=== PATIENT | male | born 1960 | race Caucasian/White ===

== ENCOUNTER 2021-04-17 07:51 | Outpatient (CLI) | payer BC ==
--- NOTE | 2021-04-17 12:26 | XRAY Report ---
PROCEDURE: Shoulder 3 View BILAT INDICATIONS: BILAT SHOULDER PAIN TECHNIQUE: 3 views of each shoulder were acquired. COMPARISON: None. FINDINGS: Right: No acute fractures or dislocations. No suspicious bony lesions. There multiple osseous dens ities around the shoulder, one adjacent to the superior glenoid, anterior to the humeral head, one henry perior to the acromioclavicular joint. There is mild acromioclavicular and moderate acromioclavicular joint degeneration. Visualized ribs appear intact. No suspicious soft tissue calcifications. Left: No fractures or dislocations. No suspicious bony lesions. Mild acromioclavicular and glenohu meral joint degeneration. No suspicious soft tissue calcifications. IMPRESSION: 1. There are multiple consistencies on right shoulder. The density adjacent to the superior glenoid A P related prior trauma. Differential diagnoses include intraarticular bodies and calcific tendinitis. If clinically indicated, MRI may be helpful 2. Mild degenerative joint disease bilaterally, right greater than left. Reviewed by: Mary Corado MD on 04/17/2021 12:25 PM PST Approved by: Mary Corado MD on 04/17/2021 12:25 PM PST Station ID: [id number]
== END 2021-04-17 07:52 | disposition home or self-care (01) ==
LOC: DI.WOS 07:51
PROVIDERS: ATTEND Physician Assistant
DX: M19.012 Primary osteoarthritis, left shoulder (principal); M19.011 Primary osteoarthritis, right shoulder; R93.6 Abnormal findings on diagnostic imaging of limbs

== ENCOUNTER 2022-03-29 08:00 | Outpatient (CLI) | payer BC ==
[2022-03-29 16:03] LABS: BASOPHILS % (AUTO) 0.5 %; EOSINOPHILS # (AUTO) 0.2 10^3/uL (0.0-0.7); EOSINOPHILS % (AUTO) 3.2 %; HCT - HEMATOCRIT 49.6 % (42.0-52.0); HGB - HEMOGLOBIN 16.6 g/dL (14.0-18.0); LYMPHOCYTES # (AUTO) 1.7 10^3/uL (1.5-3.5); MEAN CORPUSCULAR HEMOGLOBIN 29.6 pg (27.0-31.0); MEAN CORPUSCULAR HGB CONC 33.5 g/dL (32.0-36.0); MEAN CORPUSCULAR VOLUME 88.6 fL (80.0-94.0); MONOCYTES # (AUTO) 0.6 10^3/uL (0.0-1.0); MONOCYTES % (AUTO) 10.2 %; NEUTROPHILS # (AUTO) 3.3 10^3/uL (1.5-6.6); NEUTROPHILS % (AUTO) 56.6 %; PLT - PLATELET COUNT 197 10^3/uL (130-450); RED CELL DISTRIBUTION WIDTH 12.2 % (12.0-15.0); WHITE BLOOD COUNT 5.9 x10^3/uL (4.8-10.8)
[2022-03-29 16:28] LABS: PSA TOTAL 2.5 ng/mL (0.000-2.000)
[2022-03-29 16:31] LABS: ALBUMIN/GLOBULIN RATIO 1.5 (1.0-2.2); ALKALINE PHOSPHATASE 51 IU/L (42-121); ALT ALANINE AMINOTRANSFERASE 40 IU/L (10-60); AST ASPARTATE AMINOTRANSFERASE 26 IU/L (10-42); BILIRUBIN,TOTAL 1.1 mg/dL (0.2-1.0); BUN - BLOOD UREA NITROGEN 15 mg/dL (6-20); CALCIUM 8.9 mg/dL (8.5-10.3); CARBON DIOXIDE - CO2 27 mmol/L (21-32); CHLORIDE 100 mmol/L (101-111); CHOL/HDL RATIO 5.5 (<5.0); CHOLESTEROL 210 mg/dL; CREATININE 0.8 mg/dL (0.6-1.2); GFR - MDRD 97 (>89); GLUCOSE 99 mg/dL (70-100); HDL CHOLESTEROL 38 mg/dL; LDL CHOLESTEROL,CALCULATED 157 mg/dL; LDL/HDL RATIO 4.1 (<3.6); POTASSIUM 3.8 mmol/L (3.5-5.0); SODIUM 136 mmol/L (135-145); TOTAL PROTEIN 6.7 g/dL (6.7-8.2); TRIGLYCERIDES 77 mg/dL; VLDL CHOLESTEROL 15 mg/dL
[2022-03-29 17:22] LABS: PSA FREE 0.463 ng/mL (0.16-2.81)
[2022-03-30 08:38] LABS: ESTIMATED AVERAGE GLUCOSE 111 mg/dL (70-100); HEMOGLOBIN A1c% 5.5 % (4.27-6.07)
== END 2022-03-29 23:59 | disposition home or self-care (01) ==
LOC: LAB.R 08:00
PROVIDERS: ATTEND Internal Medicine
DX: Z00.00 Encounter for general adult medical examination without abnormal findings (principal); M25.50 Pain in unspecified joint; R73.01 Impaired fasting glucose; Z79.899 Other long term (current) drug therapy; N40.0 Benign prostatic hyperplasia without lower urinary tract symptoms; J30.2 Other seasonal allergic rhinitis; M25.519 Pain in unspecified shoulder
CPT/HCPCS: 80053; 80061; 83036; 83721; 84153; 84154; 84443; 85025

== ENCOUNTER 2022-07-23 12:40 | Outpatient (CLI) | payer BC ==
[2022-07-23 12:49] LABS: BASOPHILS % (AUTO) 0.4 %; EOSINOPHILS # (AUTO) 0.1 10^3/uL (0.0-0.7); EOSINOPHILS % (AUTO) 1.3 %; HCT - HEMATOCRIT 49.2 % (42.0-52.0); HGB - HEMOGLOBIN 16.4 g/dL (14.0-18.0); LYMPHOCYTES # (AUTO) 1.6 10^3/uL (1.5-3.5); LYMPHOCYTES % (AUTO) 20.3 %; MEAN CORPUSCULAR HEMOGLOBIN 29.8 pg (27.0-31.0); MEAN CORPUSCULAR HGB CONC 33.3 g/dL (32.0-36.0); MEAN CORPUSCULAR VOLUME 89.5 fL (80.0-94.0); MEAN PLATELET VOLUME 11.4 fL (7.4-11.4); MONOCYTES # (AUTO) 0.7 10^3/uL (0.0-1.0); MONOCYTES % (AUTO) 8.7 %; NEUTROPHILS # (AUTO) 5.4 10^3/uL (1.5-6.6); NEUTROPHILS % (AUTO) 68.9 %; PLT - PLATELET COUNT 211 10^3/uL (130-450); RED CELL DISTRIBUTION WIDTH 12.7 % (12.0-15.0); WHITE BLOOD COUNT 7.8 x10^3/uL (4.8-10.8)
[2022-07-23 12:52] LABS: BILIRUBIN,URINE NEGATIVE (NEGATIVE); GLUCOSE, URINE (UA) NEGATIVE (NEGATIVE); KETONES,URINE (UA) NEGATIVE (NEGATIVE); LEUKOCYTE ESTERASE, URINE NEGATIVE (NEGATIVE); NITRITE,URINE NEGATIVE (NEGATIVE); OCCULT BLOOD,URINE NEGATIVE (NEGATIVE); PROTEIN,URINE NEGATIVE (NEGATIVE); UROBILINOGEN,URINE 0.2 (NORMAL) E.U./dL (NORMAL)
[2022-07-23 12:59] LABS: CALCIUM 9.1 mg/dL (8.5-10.3); CREATININE 0.8 mg/dL (0.6-1.2); POTASSIUM 4.1 mmol/L (3.5-5.0)
[2022-07-23 13:08] LABS: WBC,URINE 0-3 /HPF (0-3)
[2022-07-23 13:09] LABS: BACTERIA,URINE Rare /HPF (None Seen); RBC,URINE 0-5 /HPF (0-5); SQUAMOUS EPITHELIAL CELL,UR RARE Squamous (<= Few)
[2022-07-23 13:37] LABS: CLARITY,URINE CLEAR (CLEAR)
== END 2022-07-23 12:41 | disposition home or self-care (01) ==
LOC: LAB 12:40
PROVIDERS: ATTEND Orthopaedic Surgery
DX: Z01.818 Encounter for other preprocedural examination (principal); N39.0 Urinary tract infection, site not specified
CPT/HCPCS: 36415; 80048; 81001; 85025; 87086; 93005

== ENCOUNTER 2022-08-09 16:03 | Outpatient (CLI) | payer BC ==
--- NOTE | 2022-08-13 17:18 | CT Report ---
PROCEDURE: UPPER EXTREMITY WO - RT INDICATIONS: RIGHT SHOULDER ARTHROPATHIES TECHNIQUE: Noncontrast 2 mm axial sections were acquired through the elbow joint, with coronal and sagittal refo rmats. For radiation dose reduction, the following was used: automated exposure control, adjustment of mA and/or kV according to patient size. COMPARISON: Shoulder radiograph dated 04/17/2021. FINDINGS: Image quality: Excellent. Bones: Moderate acromioclavicular joint osteoarthritic changes are seen with joint space narrowing, subchondral sclerosis and downward osteophyte formation depressing on musculotendinous junction of henry praspinatus. Moderate to severe lateral humeral joint osteoarthritis is seen with significant joint s pace narrowing, subchondral sclerosis and inferior marginal osteophyte formation. No acute fracture o r dislocation is seen. No suspicious bony lesions. Visualized right upper to mid ribs are intact. Soft tissues: There is superior migration of humeral head in relation to glenoid concerning for full -thickness rupture of distal supraspinatus. Mild supraspinatus muscle atrophy is seen on sagittal vignesh ges. No abnormal soft tissue calcifications. No significant joint effusion or calcified intra-articul ar loose bodies IMPRESSION: 1. Moderate to severe glenohumeral joint osteoarthritis and moderate acromioclavicular joint osteoart hritis. No fracture or dislocation. No suspicious bony lesions. 2. Superior migration of humeral head in relation to glenoid with markedly decreased subacromial spac e concerning for high-grade partial to full-thickness rupture of distal supraspinatus. Mild supraspin atus muscle atrophy. 3. No abnormal calcifications. No significant joint effusion or calcified intra-articular loose jovani s. Reviewed by: Seb Brown MD on 08/13/2022 5:17 PM PDT Approved by: Seb Brown MD on 08/13/2022 5:17 PM PDT Station ID: [id number]
== END 2022-08-09 16:04 | disposition home or self-care (01) ==
LOC: DI 16:03
PROVIDERS: ATTEND Orthopaedic Surgery
DX: M19.011 Primary osteoarthritis, right shoulder (principal); M62.511 Muscle wasting and atrophy, not elsewhere classified, right shoulder

== ENCOUNTER 2023-05-23 16:21 | Outpatient (CLI) | payer MEDICARE ==
--- NOTE | 2023-05-23 16:58 | XRAY Report ---
PROCEDURE: Foot 3+V LT (Weight Bearing) INDICATIONS: LT FOOT PAIN TECHNIQUE: 3 views of the foot were acquired. COMPARISON: None. FINDINGS: Bones: No fractures or dislocations. Mild degenerative changes of the interphalangeal joints and fi rst MTP joint. No suspicious bony lesions. Soft tissues: No tibiotalar joint effusion. Achilles tendon appears normal. IMPRESSION: No acute bony abnormality. Mild degenerative changes. If pain persists with conservative management, consider repeat x-ray in 10-14 days or cross-sectional imaging. Reviewed by: Faizan Fregoso MD on 05/23/2023 4:57 PM PST Approved by: Faizan Fregoso MD on 05/23/2023 4:57 PM [facility] Station ID: [id number]
== END 2023-05-23 16:22 | disposition home or self-care (01) ==
LOC: DI 16:21
PROVIDERS: ATTEND Podiatrist
DX: M19.072 Primary osteoarthritis, left ankle and foot (principal)

== ENCOUNTER 2023-06-11 08:24 | Outpatient (CLI) | payer MEDICARE, OTHER ==
--- NOTE | 2023-06-11 09:09 | Sleep Patient Instructions ---
Sleep Center Visit Summary - Patient Visit Information Reason for Visit: Initial consult for evaluation of sleep disordered breathing and other sleep issues. - Patient Instructions Instructions Attached: Sleep Study Additional Instructions: You will be completing a sleep study, either an in-lab polysomnography (PSG) or home sleep study (HST). You will follow-up in the sleep care office after the sleep study is completed to hear the results and talk about therapy, if needed. You will be called by our office staff to schedule this appointment, but you may contact us with any questions. - Clinic Information Contact: [facility] [address] [place] [address] [email or web address] T: [phone]
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
[2023-06-11 09:21] VITALS: BP 132/84; O2SAT 98
== END 2023-06-11 08:25 | disposition home or self-care (01) ==
LOC: SC 08:24
PROVIDERS: ATTEND Nurse Practitioner Family
DX: R06.83 Snoring (principal); G47.8 Other sleep disorders; R41.89 Other symptoms and signs involving cognitive functions and awareness; G47.10 Hypersomnia, unspecified
CPT/HCPCS: 99203; G0463; 99212

== ENCOUNTER 2023-06-26 20:36 | Outpatient (CLI) | payer MEDICARE, OTHER | END 2023-06-26 20:37 | disposition home or self-care (01) | LOC: SC 20:36 | PROVIDERS: ATTEND Nurse Practitioner Family | DX: G47.52 REM sleep behavior disorder (principal) | CPT/HCPCS: 95810 ==

== ENCOUNTER 2023-07-25 09:44 | Outpatient (CLI) | payer MEDICARE, OTHER ==
--- NOTE | 2023-07-25 10:07 | Sleep Patient Instructions ---
Sleep Center Visit Summary - Patient Visit Information Reason for Visit: Sleep study follow-up - Patient Instructions Additional Instructions: Your sleep study today was negative for significant sleep disordered breathing. However, you did have elevated respiratory episodes when sleeping on your back. You should avoid sleeping on your back to control these respiratory episodes. You were also found to have REM behavior disorder with abnormal arm and leg movements during REM sleep. You should seek neurology consult for further evaluation of possible neurological issues. You may also take 10 mg melatonin nightly to help mitigate movements. You should also make the bedroom a safe place for you and your bed partner. You were found to have episodes of snoring. There are different ways to control snoring including weight loss, oral devices made by a dentist or surgical options through ENT specialist. You should not use oral devices that do not fit properly because they can affect your bite. You should also check insurance coverage of oral devices for snoring because they may not be cover well. You may obtain a referral to an ENT specialist through your primary provider. Follow-up as needed. - Clinic Information Contact: [facility] [address] [place] [address] [email or web address] T: [phone]
--- NOTE | 2023-07-25 10:13 | SLEEP CARE CONSULTATION ---
Information from patient questionnaire entered by Samantha Gomez. I have reviewed and concur with the information entered by Samantha Gomez. This document represents the service I personally performed and the decisions made by , Ayaka Way ARNP. History of Present Illness Service Date and Time: 07/25/2023 1000 Accompanied by: Spouse (via phone) Initial [place] Sleepiness Scale score: 18 (06/09/23) Current [place] Sleepiness Scale score: 9 Additional HPI information: FRIDA AGARWAL returns with spouse via telephone for follow up and results of the recently performed. The patient was informed of the following findings: No significant sleep disordered breathing with an average AHI of 3.3 and ruthann oxygen saturation of 88%. He had supine AHI of 76.8 and movement during REM sleep which may indicate REM behavior disorder. I explained the pathophysiology behind obstructive sleep apnea. Patient does not have sleep apnea and was advised how weight gain could increase the risk of developing sleep apnea in the future. I strongly encouraged the patient to lose weight. Patient does not have significant sleep disordered breathing but has elevated AHI in supine position so advised positional therapy. Methods to achieve positional management therapy were discussed; such as, positioning with pillows, wearing a T-shirt with tennis balls sewn into the back or commercially available products. Patient has light to moderate snoring. Snoring can be reduced by weight loss. Weight loss is best achieved with diet consult. Patient instructed to contact PCP for referral. Snoring can also be treated with an oral appliance from a dentist. Advised to check insurance coverage. In addition, an ENT evaluation can be do to see if other treatment is indicated. Patient does not drink alcohol. Patient was cautioned about risks of drowsy driving until sleepiness symptoms resolve. Patient denies drowsy driving. Sleep Study - Results Type of Sleep Study: Polysomnography (COMPLETED 06/26/23) Prior sleep studies: No Polysomnography/Home Sleep Study results: IMPRESSION: The quality of the study is good. The patient had normal sleep efficiency. The sleep architecture was abnormal for sleep fragmentation and reduced amount of time spent in slow wave sleep (N3). Respiratory monitoring showed no significant sleep disordered breathing sleep-related breathing disorder (AHI = 3.3) or hypoxia (ruthann oxygen saturation of 88%). The few respiratory events occurred almost exclusively during the brief supine sleep (supine AHI = 76.8; non-supine = 0.82). Snore was light to loud in intensity. There was no significant periodic leg movement of sleep. Cardiac rhythm was normal sinus rhythm occasion al premature atrial contractions. There was movement during REM sleep. CONCLUSIONS and RECOMMENDATIONS: 1. The patient has no significant obstructive sleep apnea-hypopnea. However, because the supine AHI was elevated at 76.8, the patient should avoid sleeping supine. 2. REM behavior disorder (ICD-10 G47.52). Recommend further evaluation and treatment as appropriate. Allergies and Home Medications Known drug allergies: Yes (latex) Drug allergies reviewed: Yes Home medication list reviewed: Yes (no changes) Allergy and home medication list: Allergies latex Allergy (Verified 07/23/23 10:55) Anaphylaxis Review of Systems Review of systems same as previous: Yes (no changes) Physical Exam Vital signs obtained and entered by: AYAKA REED Blood Pressure: 119/76 Cuff size: regular (right arm) Heart Rate: 72 O2 Saturation: 98 Height: 5 ft 10 in Weight: 193 lb 12.8 oz Body Mass Index: 27.8 BMI Classification: Overweight Impression and Plan 1. REM behavior disorder. Patient shown to have abnormal arm and leg movements during REM sleep. Patient counseled on safety for himself and his spouse which is main concern in patient's with RBD. He may keep bed low to the floor put cushions on the floor and pad furniture to reduce injury. Bed partner may move to other room for sleep to ensure not being injured when patient hits or kicks out. RBD is sometimes an indicator of other neurological issues including Alzheimer's, Parkinson's, etc. and further evaluation by neurologist is recommended. He may take melatonin 10 mg, 30 minutes prior to bedtime to help reduce these nightly movements and nightmares. 2. Snoring but no significant sleep disordered breathing. However, patient had elevated AHI when sleeping on his back and should avoid sleeping supine. Patient advised that often weight loss will reduce snoring as well as apnea risk. An oral appliance can also be used for snoring. This would require a dental consultation. Patient cautioned not to use other online appliances as can cause bite issues. Patient is advised to check if insurance will cover. An ENT consult can also be helpful to determine if any other treatment is an option. 3. Overweight, unspecified. Currently patients BMI is 27.8. Obesity increases the risk of apnea, CPAP pressure requirements and overall health risks especially cardiovascular and diabetes. Thus patient is advised to lose weight. * Follow up with PCP for neurology referral for further evaluation of possible neurological issues * Try 10 mg melatonin nightly to reduce RBD movements * Avoid sleeping supine * Maintain a healthy weight * Return as needed for follow up. Counseling Topics: Sleeping position, Weight loss health impact Follow up with Sleep Care in: as needed Follow up with: PCP, Neurologist Visit Type: In Office Time Spent with Patient (minutes): 24 Provider Statement: I spent 100% of the Face to Face Visit with the patient with greater than 50% spent counseling the patient and coordination of care.
[2023-07-25 10:17] VITALS: BP 119/76; O2SAT 98
== END 2023-07-25 09:45 | disposition home or self-care (01) ==
LOC: SC 09:44
PROVIDERS: ATTEND Nurse Practitioner Family
DX: G47.52 REM sleep behavior disorder (principal); R06.83 Snoring; E66.3 Overweight; Z68.27 Body mass index [BMI] 27.0-27.9, adult
CPT/HCPCS: 99213; G0463; 99212